=== PATIENT | male | born 1965 | race Caucasian/White ===

== ENCOUNTER → 2020-03-10 12:04 | Outpatient (BNVA) | payer OTHER, SELFPAY | PROVIDERS: Family Provider Internal Medicine; PCP Internal Medicine; Visit Provider Internal Medicine Cardiovascular Disease | DX: E78.5 Hyperlipidemia, unspecified (principal); R06.02 Shortness of breath; I35.0 Nonrheumatic aortic (valve) stenosis; I25.5 Ischemic cardiomyopathy; I65.29 Occlusion and stenosis of unspecified carotid artery; I25.10 Atherosclerotic heart disease of native coronary artery without angina pectoris; I65.23 Occlusion and stenosis of bilateral carotid arteries; I10 Essential (primary) hypertension | CPT/HCPCS: 80048; 80061; 80076 ==

== ENCOUNTER → 2020-03-17 10:31 | Outpatient (BNVA) | payer OTHER, SELFPAY | PROVIDERS: Family Provider Internal Medicine; PCP Internal Medicine; Referring Provider Internal Medicine; Visit Provider Specialist | DX: G40.909 Epilepsy, unspecified, not intractable, without status epilepticus (principal); G40.309 Generalized idiopathic epilepsy and epileptic syndromes, not intractable, without status epilepticus | CPT/HCPCS: 99212; 99213 ==

== ENCOUNTER 2020-04-07 07:46 | Outpatient (CLI) | payer OTHER, SELFPAY ==
--- NOTE | 2020-04-07 | USCV_ITS ---
Angelica Davdi Age: 54 Gender: M : 1965 Exam Date: 04/07/2020 08:13 Ordering Phys: Monica Stevens MD ([email or web address]) Technologist: Delma Patiño Exam Location: [facility] [place] Indication: STENOSIS BP: 140 / 71 HR: 62 Rhythm: Sinus Technical Quality: Adequate MEASUREMENTS (Male / Female) Normal Values 2D ECHO LV Diastolic Diameter PLAX 4.2 cm 4.2 - 5.9 / 3.9 - 5.3 cm LV Systolic Diameter PLAX 2.5 cm LV Chamber Size 3.1 cm IVS Diastolic Thickness 1.5 cm 0.6 - 1.0 / 0.6 - 0.9 cm IVS Systolic Thickness 1.7 cm LVPW Diastolic Thickness 1.8 cm 0.6 - 1.0 / 0.6 - 0.9 cm LVPW Systolic Thickness 2.8 cm RV Chamber Size 2.7 cm LVOT Diameter 2.0 cm LV Ejection Fraction 2D Teich 72.1 % LV Ejection Fraction MOD 2C 55.8 % LV Ejection Fraction 2C AL 56.4 % LA Diameter 4.8 cm LA Width 3.3 cm LA Height 4.3 cm RA Width 3.9 cm RA Height 5.2 cm Aorta at Sinotubular Diameter 2.6 cm M-MODE LV Diastolic Diameter MM 4.7 cm 4.2 - 5.9 / 3.9 - 5.3 cm LV Systolic Diameter MM 3.7 cm LV Ejection Fraction MM Teich 42.9 % IVS Diastolic Thickness MM 1.2 cm 0.6 - 1.0 / 0.6 - 0.9 cm IVS Systolic Thickness MM 1.4 cm LVPW Diastolic Thickness MM 1.5 cm 0.6 - 1.0 / 0.6 - 0.9 cm LVPW Systolic Thickness MM 2.0 cm RV Diastolic Diameter MM 2.7 cm Aortic Annulus Diameter 3.1 cm LA Ao Ratio MM 1.6 MV E Point Septal Separation 1.1 cm DOPPLER AV Peak Velocity 136.0 cm/s LVOT Peak Velocity 101.0 cm/s AV Area Cont Eq vti 2.3 cm squared AV Area Cont Eq pk 2.4 cm squared MV Area PHT 2.9 cm squared Mitral E to A Ratio 1.1 MV E' Velocity 11.0 cm/s Mitral E to MV E' Ratio 10.0 Mitral E to LV E' Lateral Ratio 9.4 Mitral E to LV E' Septal Ratio 10.6 TR Peak Velocity 213.0 cm/s TR Peak Gradient 18.1 mmHg TV Peak E Velocity 70.0 cm/s Right Atrial Pressure 3.0 mmHg Pulmonary Artery Systolic Pressu 21.1 mmHg PV Peak Velocity 89.0 cm/s RV Acceleration Time 0.1 s RV Ejection Time 0.3 s RV AcT/ET 0.3 FINDINGS Left Ventricle Normal left ventricular size and systolic function, EF 48 %. Mild diffuse hypokinesia of the septum and anteroseptal segments.mild left ventricular hypertrophy. Normal left ventricular size and systolic function, EF 48 %. Right Ventricle The right ventricle is normal in size and function. Right Atrium The right atrium is normal in size. Left Atrium The left atrium is normal in size. Mitral Valve No gross abnormalities noted Aortic Valve No gross abnormalities noted Tricuspid Valve No gross abnormalities noted Pulmonic Valve Pulmonic valve not well visualized. Pericardium Normal pericardium without effusion. Aorta Normal ascending aorta dimension. CONCLUSIONS Normal left ventricular size and systolic function, EF 48 %. Mild diffuse hypokinesia of the septum and anteroseptal segments. Mild concentric left renal hypertrophy Normal cardia chamber sizes. No significant pericardial effusion. Technically difficult study because of the poor ultrasonic window. Compared to the study from 08/17/2017, no significant change in the LV ejection fraction. Because of the technical difficulties, exact comparison is difficult Dr Monica Stevens MD [facility] (Electronically Signed) Final Date: 07 April 2020 19:53 S
--- NOTE | 2020-04-07 08:00 | USCV_ITS ---
Angelica David Age: 54 Gender: M : 1965 Exam Date: 04/07/2020 07:59 Ordering Phys: Monica Stevens MD ([email or web address]) Technologist: Delma Patiño Exam Location: [facility] [place] Indication: AV STENOSIS Risk Factors: Previous Vascular Surgery: Right Brachial BP: / Left Brachial BP: / Right Left Velocity (cm/s) Spectral Plaque Velocity (cm/s) Spectral Plaque Syst/Diast Broadening Syst/Diast Broadening 74.10/ 9.90 Prox CCA 124.50/ 17.50 70.90/ 13.20 Mid CCA 62.30 / 9.80 51.90/ 10.70 Distal CCA 63.30 / 9.80 85.20/ 12.80 Prox ICA 76.20 / 18.10 120.00/28.40 Mid ICA 63.80 / 21.60 96.80/ 24.50 Distal ICA 61.80 / 22.60 98.00 ECA 118.60 1.69 ICA/CCA 1.22 Antegrade Vertebral Antegrade 36.20/ 7.10 cm/s 47.30/ 13.40 cm/s Tri Subclavian Tri 63.20 49.30 FINDINGS Moderate heterogeneous plaques at the bifurcations and proximal internal carotid artery. Mild to moderate heterogeneous plaques of the left bifurcation and proximal internal carotid artery Antegrade flow in the vertebral arteries bilaterally Intimal thickening in the common carotid arteries bilaterally Normal Doppler flow velocities in the external carotid and subclavian arteries bilaterally CONCLUSIONS Moderate heterogeneous plaques at the right bifurcation and proximal internal carotid artery with velocity elevation consistent with 16-49% stenosis. Mild to moderate heterogeneous plaques of the left bifurcation and proximal internal carotid artery. Compared to the study from the 08/27/2018, the Doppler velocities are diminished bilaterally Dr Monica Stevens MD [facility] (Electronically Signed) Final Date: 07 April 2020 19:47 S
== END 2020-04-07 07:47 | disposition home or self-care (01) ==
LOC: RAD 07:48
PROVIDERS: PCP Internal Medicine; Visit Provider Internal Medicine Cardiovascular Disease
DX: I35.0 Nonrheumatic aortic (valve) stenosis (principal); N28.81 Hypertrophy of kidney; I65.23 Occlusion and stenosis of bilateral carotid arteries
CPT/HCPCS: 93306; 93880

== ENCOUNTER 2020-05-09 02:15 | Observation (INO) | payer OTHER, SELFPAY ==
[2020-05-09] VITALS (21 sets, daily range): BP systolic 109–181; BP diastolic 62–92; PULSE 48–95; RESP 16–28; TEMP 36.2–39.4; O2SAT 93–99; BMI 30.5
--- NOTE | 2020-05-09 02:33 | CTR_ITS ---
PROCEDURE INFORMATION: Exam: CT Abdomen And Pelvis With Contrast Exam date and time: 05/09/2020 3:36 AM Age: 54 years old Clinical indication: Fever and nausea and vomiting; Abdominal pain; Localized; Right lower quadrant (rlq); Additional info: Rlq pain TECHNIQUE: Imaging protocol: Computed tomography of the abdomen and pelvis with intravenous contrast. Radiation optimization: All CT scans at this facility use at least one of these dose optimization techniques: automated exposure control; mA and/or kV adjustment per patient size (includes targeted exams where dose is matched to clinical indication); or iterative reconstruction. Contrast material: VISI; Contrast volume: 95 ml; Contrast route: INTRAVENOUS (IV); COMPARISON: US Renal Kidney Structu* [id number] 2016-04-28 15:37 RADIATION DOSE METRICS: Total DLP (mGy-cm): 1199.49 FINDINGS: Liver: Normal. No mass. Gallbladder and bile ducts: Irregular gallbladder with gallbladder wall thickening, nodule, and calcification in the fundus, recommend ultrasound follow-up. Pancreas: Normal. No ductal dilation. Spleen: Normal. No splenomegaly. Adrenals: Normal. No mass. Kidneys and ureters: Normal. No hydronephrosis. Stomach and bowel: Unremarkable. No obstruction. No mucosal thickening. Appendix: Enlarged appendix with mucosal enhancement and mild adjacent stranding, appendix measures 11 mm on series 2, image 81. Evidence for acute appendicitis. Intraperitoneal space: Unremarkable. No free air. No significant fluid collection. Vasculature: Unremarkable. No abdominal aortic aneurysm. Lymph nodes: Unremarkable. No enlarged lymph nodes. Bladder: Unremarkable as visualized. Reproductive: Unremarkable as visualized. Bones/joints: Sternotomy. There is a bilateral spondylolysis defect of the L5-S1 level, with no evidence of spondylolisthesis. Soft tissues: Unremarkable. CT/CT abdomen pelvis w con* [id number] IMPRESSION: 1. Irregular gallbladder with gallbladder wall thickening, nodule, and calcification in the fundus, recommend ultrasound follow-up. 2. Enlarged appendix with mucosal enhancement and mild adjacent stranding, appendix measures 11 mm on series 2, image 81. Evidence for acute appendicitis. 3. There is a bilateral spondylolysis defect of the L5-S1 level, with no evidence of spondylolisthesis. Radiation Dose CTDIVOL = (mGy): DLP = 1199.49 (mGy-cm)
[2020-05-09] MEDS: sodium chloride 0.9% 500 ML IV (02:50)
[2020-05-09] MEDS: ondansetron 2 mg/ML SDV 2 mL 4 MG IVP (02:55)
[2020-05-09 03:08] LABS: Basophils % 0.4 %; Eosinophils # 0.1 10^3/uL (0.0-0.8); Eosinophils % 1.4 %; Hematocrit 43.1 % (42.0-52.0); Hemoglobin 13.8 g/dL (11.7-16.6); Mean Corpuscular Hemoglobin 28.3 pg (28.0-34.0); Mean Corpuscular Volume 88.5 fL (80-94); Mean Platelet Volume 9.6 fL (7.4-10.4); Monocytes # 0.4 10^3/uL (0.2-0.9); Monocytes % 4.4 %; Neutrophils % 81.6 %; Nucleated Red Blood Cells % 0 %; Platelet Count 165 10^3/cmm (130-400); Red Blood Count 4.87 10^6/uL (4.1-5.3); White Blood Count 8.1 10^3/uL (4.0-10.0)
[2020-05-09] MEDS: morphine 4 mg/mL SDV 1 mL IVP (03:18)
[2020-05-09 03:28] LABS: Alanine Aminotransferase 14 U/L (0-41); Albumin Level 4.1 g/dL (3.5-5.2); Alkaline Phosphatase 79 IU/L (40-130); Blood Urea Nitrogen 31 mg/dL (6-20); C Reactive Protein 3.2 mg/L (0.0-4.9); Calcium 8.8 mg/dL (8.5-10.5); Carbon Dioxide 21 mmol/L (22-29); Chloride 107 mmol/L (98-107); Globulin 3.8 g/dL (1.3-4.6); Glomerular Filtration Rate 39.2 mL/min (90-130); Glucose 84 mg/dL (65-115); Lipase 252 U/L (13-60); Osmolality Calculated 280 mOsm/kg (285-295); Sodium 137 mmol/L (136-145); Total Bilirubin 0.6 mg/dL (0.15-1.2); Total Protein 7.9 g/dL (6.6-8.7)
[2020-05-09 03:32] LABS: Aspartate Amino Transferase 20 U/L (0-40)
[2020-05-09 03:58] LABS: Add Urine Microscopic? YES; Bilirubin Urine Neg (NEGATIVE); Blood Urine 2+ (Negative); Glucose Urine UA Norm (Normal); Ketones Urine Negative (Negative); Leukocyte Esterase Urine Negative (Negative); Nitrate Urine Negative (Negative); Protein Urine 3+ (Negative); Specific Gravity, Urine 1.015 (1.005-1.030); Urine Appearance Clear (CLEAR); Urine Color Yellow (Yellow); Urobilinogen Urine Norm (Negative); pH Urine 5 (5-7)
[2020-05-09 04:01] LABS: Amorphous Sediment Urine TRACE; Bacteria Urine TRACE; Mucus Urine TRACE; RBC Urine 0-4 /hpf (0-2); Squamous Epithelial Cell Urine 0-4 (0-5); WBC Urine 0-4 /hpf (0-5)
[2020-05-09 04:02] LABS: Add Urine Culture? No; Hyaline Casts Urine 0-4
--- NOTE | 2020-05-09 04:09 | PC.NURSE ---
Dr notified of elevated temp 103.0. orders obtained for toradol IVP
[2020-05-09] MEDS: ketorolac 30 mg/mL INJ IVP (04:10)
[2020-05-09] MEDS: iodixanol 320 mg/mL 100mL Btl IV (04:18)
--- NOTE | 2020-05-09 04:22 | ED_ITS ---
HPI - Abdominal Pain General: Chief Complaint: Abdominal Pain Stated Complaint: SHARP AB PAIN Time Seen by Provider: 05/09/20 02:30 History of Present Illness: HPI narrative: 54-year-old male who developed right lower quadrant abdominal pain around 11 PM last night. He has had the chills. He is nauseated, and is vomited a couple of times. He says the pain is rather intense. No diarrhea. No blood in the stool. No one else with similar symptoms at home. Had no belly surgeries MD elicited complaint: abdominal pain Pertinent past history: myocardial infarction Onset (ago): hour(s) Pain Consistency: constant Location: RLQ Severity: moderate Quality: stabbing and aching Radiation: none Migration to: no migration Exacerbating factors: movement Relieving factors: nothing Associated Symptoms: Reports chills, fever(s) and vomiting; Denies GI cramping, diarrhea, dysuria, hematuria, hematemesis and melena Review of Systems Const: Reports: fever(s) and chills Eyes: Denies: change in vision ENMT: Denies: odynophagia, swelling of lips/tongue, post nasal drip or sinus pain Card: Denies: chest pain, palpitations or irregular heart rhythm Resp: Denies: dyspnea, non-productive cough or wheezing GI: Reports: vomiting; Denies: hematemesis, diarrhea, GI cramping or melena : Reports: urinary frequency; Denies: difficulty urinating, dysuria or hematuria Musc: Denies: neck pain or back pain Skin/Breast: Reports: rash; Denies: erythema Neuro: Denies: headache(s), dizziness or vertigo Psych: Denies: anxiety [facility] PFSH: Medical History (Updated 05/09/20 @ 05:14 by Bautista Perera DO) Atherosclerosis of coronary artery of [place] heart Benign essential hypertension with target blood pressure below 140/90 Carotid artery stenosis without cerebral infarction Dyslipidemia (high LDL; low HDL) Ischemic cardiomyopathy Family History Other Diabetes Hypertension Denies family history of CAD (coronary artery disease) Cancer Stroke Social History Smoking and tobacco status: never smoked Alcohol intake: never History of recent travel: Yes (traveled to [facility]) Physical Exam Const: GENERAL APPEARANCE: well developed ORIENTATION/CONSCIOUSNESS: Yes oriented to person, Yes oriented to place and Yes oriented to time HENMT: COMMON NORMALS: normocephalic, external ears normal and Normal external nose present HEAD & SCALP: normocephalic FACE & SINUS: normal facial exam NOSE: Normal external nose present and No nasal discharge present EXTERNAL EAR: Yes external ears normal Eye: COMMON NORMALS: Equal, round and reactive pupils present, EOMs intact bilaterally and conjunctivae normal EYELID: eyelids normal CONJUNCTIVA: Yes conjunctivae normal PUPIL: Yes Equal, round and reactive pupils present Neck/C-Spine: GENERAL: No tracheal deviation Chest: COMMONS NORMALS: normal inspection of the chest CHEST: No tenderness Resp: COMMON NORMALS: clear to auscultation bilaterally EFFORT & INSPECTION: No tachypneic, No respiratory distress, No retractions, No uses accessory muscles and No tracheal deviation AUSCULTATION: clear to auscultation bilaterally, no rhonchi, no wheezes and lung sounds not diminished Cardio: COMMON NORMALS: regular rate and regular rhythm RATE: regular rate RHYTHM: regular rhythm HEART SOUNDS: no murmurs PERIPHERAL PULSES: radial pulses present GI: INSPECTION: No abdominal distension AUSCULTATION: No Hyperactive bowel sounds present and No Hypoactive bowel sounds present PALPATION: Yes Tenderness to palpation present (GI) Details: RLQ, No Guarding due to palpation present (GI) and No Rigid due to palpation PERCUSSION: no tympanic to percussion Neuro: SENSORIUM/ORIENTATION: Yes oriented to person, Yes oriented to place and Yes oriented to time Psych: COMMON NORMALS: mental status grossly normal Skin: COMMON NORMALS: no rashes or lesions noted GENERAL SKIN EXAM: no rashes or lesions noted Course Consultations: Consultation #1: aron Time: 05:05 Vital Signs: Vital signs: Vital Signs Temperature 102.4 F H 05/09/20 04:43 Pulse Rate 82 05/09/20 04:43 Respiratory Rate 18 05/09/20 04:43 Blood Pressure 167/73 05/09/20 04:43 Pulse Oximetry 95 05/09/20 04:43 MDM - Abdominal Pain MDM Narrative: Medical decision making narrative: 54-year-old male with right lower quadrant pain. His white blood cell count is 8.1. His CRP is not yet elevated. His bicarbonate level is 21, and creatinine 1.8. He does have diabetes. He has a history of heart disease as well. He is not having any symptoms related to those things. His CT reveals an 11 mm inflamed appendix. Spoke with surgery. The patient is on a full aspirin, but no other anticoagulants or antiplatelet therapy otherwise. He will be given Zosyn, and seen a bit later this morning. Lab Data: Labs: Lab Results 05/09/20 05/09/20 05/09/20 Range/Units 02:51 02:51 03:30 WBC 8.1 (4.0-10.0) 10^3/ uL RBC 4.87 (4.1-5.3) 10^6/u L Hgb 13.8 (11.7-16.6) g/dL Hct 43.1 (42.0-52.0) % MCV 88.5 (80-94) fL MCH 28.3 (28.0-34.0) pg MCHC 32.0 (30.0-36.0) g/dL RDW 12.0 L (12.1-15.1) % Plt Count 165 (130-400) 10^3/c mm MPV 9.6 (7.4-10.4) fL Neut % (Auto) 81.6 % Lymph % (Auto) 12.0 % [place] % (Auto) 4.4 % Eos % (Auto) 1.4 % Baso % (Auto) 0.4 % Neut # (Auto) 6.60 (1.8-7.7) 10^3/u L Lymph # (Auto) 1.0 (0.8-4.8) 10^3/u L [place] # (Auto) 0.4 (0.2-0.9) 10^3/u L Eos # (Auto) 0.1 (0.0-0.8) 10^3/u L Baso # (Auto) 0.0 (0.0-0.1) 10^3/u L Nucleated RBC % (a uto) 0 % Nucleated RBCs # 0.0 /100WBC Sodium 137 (136-145) mmol/L Potassium 5.0 (3.5-5.1) mmol/L Chloride 107 (98-107) mmol/L Carbon Dioxide 21 L (22-29) mmol/L Anion Gap 14.0 (5-19) BUN 31 H (6-20) mg/dL Creatinine 1.8 H (0.7-1.2) mg/dL GFR Calculation 39.2 L (90-130) mL/min Glucose 84 (65-115) mg/dL Calculated Osmolal ity 280 L (285-295) mOsm/k g Calcium 8.8 (8.5-10.5) mg/dL Total Bilirubin 0.6 (0.15-1.2) mg/dL AST 20 (0-40) U/L ALT 14 (0-41) U/L Alkaline Phosphata se 79 (40-130) IU/L C-Reactive Protein 3.2 (0.0-4.9) mg/L Total Protein 7.9 (6.6-8.7) g/dL Albumin 4.1 (3.5-5.2) g/dL Globulin 3.8 (1.3-4.6) g/dL Lipase 252 H (13-60) U/L Urine Color Yellow (Yellow) Urine Appearance Clear (CLEAR) Urine pH 5 (5-7) Ur Specific Gravit y 1.015 (1.005-1.030) Urine Protein 3+ H (Negative) Urine Glucose (UA) Norm (Normal) Urine Ketones Negative (Negative) Urine Blood 2+ H (Negative) Urine Nitrate Negative (Negative) Urine Bilirubin Neg (NEGATIVE) Urine Urobilinogen Norm (Negative) mg/dL Ur Leukocyte Leelee ase Negative (Negative) Urine RBC 0-4 H (0-2) /hpf Urine WBC 0-4 H (0-5) /hpf Ur Squamous Epith Cells 0-4 H (0-5) Amorphous Sediment Trace Urine Bacteria Trace (NONE) Hyaline Casts 0-4 H Urine Mucus Trace Discharge Plan Discharge Patient Disposition: Placed in Observation Clinical Impression: Acute appendicitis Qualifiers: Acute appendicitis type: with localized peritonitis Appendicitis gangrene presence: without gangrene Appendicitis perforation presence: without perforation Appendicitis abscess presence: without abscess Qualified Code(s): K35.30 - Acute appendicitis with localized peritonitis, without perforation or gangrene Condition: Stable Referrals: Trent Bernstein DO [Primary Care Provider] - Patient Instructions: Appendicitis (GEN) Coding Level of Care Code ED Larry Operator for [facility] Fwd Exam Comprehensive
--- NOTE | 2020-05-09 04:56 | PC.NURSE ---
pt actively vomiting during initial assessment. Approx 300cc of undigested food in emesis basin
[2020-05-09] MEDS: piperacillin-tazobactam 3.375 GM in sodium chloride 0.9% (plus) 50 ML IV (05:12)
--- NOTE | 2020-05-09 05:54 | PC.NURSE ---
i agree with this assessment
--- NOTE | 2020-05-09 07:36 | ECG_ITS ---
[facility] Test Date: 2020-05-09 Pat Name: Angelica David Department: Room: 273 Gender: Male [employer]ter: : 1965 Requested By: Padmini West Order Number: [id number] Armijo MD: Danii Purcell M.D. Measurements Intervals [place] Rate: 69 P: 47 MT: 192 QRS: 40 QRSD: 100 T: 139 QT: 395 QTc: 425 Interpretive Statements SINUS RHYTHM INFERIOR MYOCARDIAL INFARCTION, OF INDETERMINATE AGE ST DEVIATION AND MARKED T-WAVE ABNORMALITY, CONSIDER LATERAL ISCHEMIA Compared to ECG 05/24/2016 05:38:39 T-wave abnormality now present Possible ischemia now present Intraventricular conduction delay no longer present Myocardial infarct finding still present Electronically Signed On 05-09-2020 12:48:09 CDT by Danii Purcell M.D. [id number]
--- NOTE | 2020-05-09 07:37 | P.HP_ITS ---
Providers/Chief Complaint Admitting Physician: Lew Jaquez MD Primary Care Provider: Trent Bernstein DO Chief Complaint: SHARP AB PAIN History of Present Illness Angelica David is a 54 year old male who presented to the ER early this morning with complaints of right lower quadrant pain which started at 11 PM last night. Patient stated the pain is localized to the right lower quadrant, did not radiate, no relieving factors, made worse with motion. Patient also had multiple episodes of nausea and vomiting. Denies any fevers or chills. No significant constipation or diarrhea. Patient has never had a colonoscopy prep before, no prior abdominal surgeries Review of Systems General: Reports: 10 or more systems reviewed and unremarkable except in HPI and below Medications/Allergies Home Medications Medication Instructions Recorded Confirmed Last Taken Type carvedilol 25 mg tablet 25 mg PO BID #180 tab 02/03/20 05/09/20 Unknown Rx isosorbide mononitrate 30 mg 30 mg PO DAILY #90 tab 02/17/20 05/09/20 Unknown Rx tablet,extended release 24 hr amlodipine 10 mg tablet 10 mg PO DAILY 03/10/20 05/09/20 Unknown History aspirin 325 mg tablet 325 mg PO DAILY 03/10/20 05/09/20 Unknown History insulin degludec 100 unit/mL 45 unit SUBCUT BEDTIME 03/10/20 05/09/20 Unknown History subcutaneous solution insulin lispro 100 unit/mL 1 unit SUBCUT DIRECTED 03/10/20 05/09/20 Unknown History subcutaneous pen divalproex 500 mg tablet,extended 1,500 mg PO DAILY #300 tab 03/17/20 05/09/20 Unknown Rx release 24 hr rosuvastatin 10 mg tablet 10 mg PO DAILY #90 tab 03/18/20 05/09/20 Unknown Rx Zonegran 400 mg PO DAILY 05/09/20 05/09/20 Unknown History Allergies Allergy/AdvReac Type Severity Reaction Status Date / Time No Known Allergies Allergy Unverified 03/17/20 10:43 PFSH Acute PFSH: Medical History Atherosclerosis of coronary artery of [place] heart Benign essential hypertension with target blood pressure below 140/90 Carotid artery stenosis without cerebral infarction Dyslipidemia (high LDL; low HDL) Ischemic cardiomyopathy Family History Other Diabetes Hypertension Denies family history of CAD (coronary artery disease) Cancer Stroke Social History Smoking and tobacco status: never smoked Alcohol intake: never History of recent travel: Yes (traveled to [facility]) Vitals/I&O/Wt Last Vital Signs Temp 98.3 F 05/09/20 07:24 Pulse 75 05/09/20 07:24 Resp 16 05/09/20 07:24 BP 117/65 05/09/20 07:24 Pulse Ox 95 05/09/20 07:24 Weight last 48 hrs Weight 225 lb Physical Exam Narrative: EXAM NARRATIVE: HEENT: Normocephalic Eye: Sclera /conjunctiva normal Respiratory and chest: Bilateral clear breath sounds on auscultation Cardiovascular: Normal S1 and S2 heart sounds Abdomen: Soft to palpation, tender right lower quadrant, Rovsing sign positive Neurological: Oriented to place person and time Skin: Intact, no lesions appreciated on gross exam Data : 05/09/20 02:51 05/09/20 02:51 A&P Assessment and plan (1) Acute appendicitis: 54-year-old gentleman with right lower quadrant pain, nausea and vomiting, with CT scan showing acute appendicitis Plan for laparoscopic possible open appendectomy Procedure, risks, benefits and alternatives have been discussed with the patient who wishes to proceed with surgery. Status: Acute Qualifiers: Acute appendicitis type: with localized peritonitis Appendicitis abscess presence: without abscess Appendicitis gangrene presence: without gangrene Appendicitis perforation presence: without perforation Qualified Code(s): K35.30 - Acute appendicitis with localized peritonitis, without perforation or gangrene Attestations Medical Necessity Statement*: Acute appendicitis Coding Level of Care Code Acute Manager Of Regulatory Affairs for [facility] Fwd Diagnoses Acute appendicitis K35.30 Acute appendicitis type: with localized peritonitis Appendicitis abscess presence: without abscess Appendicitis gangrene presence: without gangrene Appendicitis perforation presence: without perforation
[2020-05-09] MEDS: sodium chloride 0.9% 1,000 ML 100 ML IV (07:45)
--- NOTE | 2020-05-09 08:09 | P.ANESASSM_ITS ---
Pre-Anesthetic Assessment Pre-Anesthetic Assessment: Height/Weight: Height 1.83 m Weight 102.058 kg Temp Pulse Resp BP Pulse Ox 98.3 F 75 16 117/65 95 05/09/20 07:24 05/09/20 07:24 05/09/20 07:24 05/09/20 07:24 05/09/20 07:24 Preop Diagnosis: Acute appendicitis Proposed Procedure: Operation Date: 05/09/20 09:10 Proposed Procedures p Laparoscopic Appendectomy(Not Applicable) - Lew Jaquez MD Familial anesthetic complications: No trouble Was Beta Katja taken within 24 hours: Yes Last intake: Intake Last Liquid Date 05/08/20 Last Liquid Time 21:30 Last Solid Date 05/08/20 Last Solid Time 17:30 Social: Social History: No alcohol and No tobacco Exam: Pre-Anes Outpt Exam: alert, oriented x 3, clear to auscultation bilaterally and regular rate & rhythm Airway: Cervical ROM: WNL MP: 3 Dentition: Full Pulmonary: Pulmonary: None reported CV/HEM: CV/HEM: CAD (s/p cabg 2015), HTN and HI Comments: Echo 48% EF : : Chronic renal Insufficiency Comments: Scr 1.9, CKD III Metabolic: Metabolic: DM and Hyperlipidemia Neuropsych: Neuropsych: Seizure (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) Comments: Mod carotid stenosis B/L Anesthetic Plan: ASA status: 3 Anesthesia: General Risk of > 500 ml blood loss (7ml/kg in children): No Meds/Allergies Current Medications: Current Medications Generic Name Dose Route Start Last Admin Trade Name Freq PRN Reason Stop Dose Admin Sodium Chloride 1,000 mls @ 100 m ls/hr 05/09/20 07:45 05/09/20 07:45 Sodium Chloride 0.9% IV 100 mls/hr .Q10H JAYLEN Administration PFSH Anesthesia PFSH: Medical History Atherosclerosis of coronary artery of [place] heart Benign essential hypertension with target blood pressure below 140/90 Carotid artery stenosis without cerebral infarction Dyslipidemia (high LDL; low HDL) Ischemic cardiomyopathy Family History Other Diabetes Hypertension Denies family history of CAD (coronary artery disease) Cancer Stroke Social History Smoking and tobacco status: never smoked Alcohol intake: never History of recent travel: Yes (traveled to [facility]) Data Anesthesia CBC & Chem 7: 05/09/20 02:51 05/09/20 02:51 Other Labs: Laboratory Results - last 48 hr 05/09/20 05/09/20 05/09/20 02:51 02:51 03:30 WBC 8.1 RBC 4.87 Hgb 13.8 Hct 43.1 MCV 88.5 MCH 28.3 MCHC 32.0 RDW 12.0 L Plt Count 165 MPV 9.6 Neut % (Auto) 81.6 Lymph % (Auto) 12.0 [place] % (Auto) 4.4 Eos % (Auto) 1.4 Baso % (Auto) 0.4 Neut # (Auto) 6.60 Lymph # (Auto) 1.0 [place] # (Auto) 0.4 Eos # (Auto) 0.1 Baso # (Auto) 0.0 Nucleated RBC % (auto) 0 Nucleated RBCs # 0.0 Sodium 137 Potassium 5.0 Chloride 107 Carbon Dioxide 21 L Anion Gap 14.0 BUN 31 H Creatinine 1.8 H GFR Calculation 39.2 L Glucose 84 Calculated Osmolality 280 L Calcium 8.8 Total Bilirubin 0.6 AST 20 ALT 14 Alkaline Phosphatase 79 C-Reactive Protein 3.2 Total Protein 7.9 Albumin 4.1 Globulin 3.8 Lipase 252 H Urine Color Yellow Urine Appearance Clear Urine pH 5 Ur Specific [place] 1.015 Urine Protein 3+ H Urine Glucose (UA) Norm Urine Ketones Negative Urine Blood 2+ H Urine Nitrate Negative Urine Bilirubin Neg Urine Urobilinogen Norm Ur Leukocyte Esterase Negative Urine RBC 0-4 H Urine WBC 0-4 H Ur Squamous Epith Cells 0-4 H Amorphous Sediment Trace Urine Bacteria Trace Hyaline Casts 0-4 H Urine Mucus Trace Cardiac Studies: No Data to Display
--- NOTE | 2020-05-09 10:16 | PM.OP ---
Operative Report Date of procedure: May 09, 2020 Pre-op Diagnosis: Acute appendicitis Post-op diagnosis: same Procedure Done: Laparoscopic appendectomy Specimens removed/disposition: Appendix Surgeon: Lew Jaquez Anesthesia: General Estimated blood loss (mL): 20 Condition: stable Disposition: PACU Procedure: The patient was taken to the Operating Room and intubated under general anesthesia after antibiotic had been administered. Using a 15 blade, a 1-cm infraumbilical incision was made and using open Braxton technique, the peritoneal cavity was entered. A 12mm port with balloon was placed and 14 mm of pneumoperitoneum was created and 10-mm 30 degree scope was introduced. Two separate 5mm ports were placed in the left and right lower quadrant under direct visualization. The appendix was noted in the right lower quadrant and appeared acutely inflamed.. Using [place] forceps, an opening was made in the mesoappendix near the base of the appendix. An Endo RADHA stapler 45mm long 3.5mm blue load was introduced to divide the appendix at it's base. Using electrocautery, the mesoappendix including the appendicular artery was divided. There was no bleeding noted and the staple line appeared intact. The right lower quadrant was irrigated with saline and an EndoCatch bag was introduced to remove the appendix. All three ports were removed under direct visualization and there was no bleeding noted on the port sites. 10cc of 0.5% Marcaine was infiltrated at the port sites. The fascia at the umbilical port was closed using figure of eight 0-Vicryl sutures and subcutaneous tissue was approximated using 3-0 Vicryl and skin at all 3 port sites was closed using 4-0 Monocryl and Dermabond.
--- NOTE | 2020-05-09 10:17 | P.DS_ITS ---
Discharge Providers Date of Admission: 05/09/20 05:16 Date of Discharge: May 09, 2020 Attending Provider at Admission: Lew Jaquez MD Attending Provider at Discharge: Lew Jaquez MD Primary Care Provider: Trent Bernstein DO Diagnoses at Discharge Discharge Diagnosis (1) Acute appendicitis: Status: Resolved Qualifiers: Acute appendicitis type: with localized peritonitis Appendicitis abscess presence: without abscess Appendicitis gangrene presence: without gangrene Appendicitis perforation presence: without perforation Qualified Code(s): K35.30 - Acute appendicitis with localized peritonitis, without perforation or gangrene Reason for Visit Reason for Visit: SHARP AB PAIN Hospital Course Discharge Summary: This is a 54-year-old gentleman who presented to the ER with right lower quadrant pain and CT showed appendicitis. Patient was admitted to the hospital and underwent laparoscopic appendectomy the following morning. At the time of discharge patient was tolerating a clear liquid diet vital signs are stable and his pain was well controlled. Discharge Data Data Completed and Pending: Completed Studies During Hospitalization Category Date Time Status CT abdomen pelvis w con* [id number] Urge nt Cat Scan 05/09/20 02:33 Completed Pending at discharge Category Date Time Status ES surgery / GI i mages Routine Exams 05/09/20 08:55 Taken Pathology: Surgic al [PTH] Routine Pth 05/09/20 10:01 Ordered Labs from last 24 hours 05/09/20 05/09/20 05/09/20 03:30 02:51 02:51 WBC 8.1 RBC 4.87 Hgb 13.8 Hct 43.1 MCV 88.5 MCH 28.3 MCHC 32.0 RDW 12.0 L Plt Count 165 MPV 9.6 Neut % (Auto) 81.6 Lymph % (Auto) 12.0 [place] % (Auto) 4.4 Eos % (Auto) 1.4 Baso % (Auto) 0.4 Neut # (Auto) 6.60 Lymph # (Auto) 1.0 [place] # (Auto) 0.4 Eos # (Auto) 0.1 Baso # (Auto) 0.0 Nucleated RBC % (a uto) 0 Nucleated RBCs # 0.0 Sodium 137 Potassium 5.0 Chloride 107 Carbon Dioxide 21 L Anion Gap 14.0 BUN 31 H Creatinine 1.8 H GFR Calculation 39.2 L Glucose 84 Calculated Osmolal ity 280 L Calcium 8.8 Total Bilirubin 0.6 AST 20 ALT 14 Alkaline Phosphata se 79 C-Reactive Protein 3.2 Total Protein 7.9 Albumin 4.1 Globulin 3.8 Lipase 252 H Urine Color Yellow Urine Appearance Clear Urine pH 5 Ur Specific Gravit y 1.015 Urine Protein 3+ H Urine Glucose (UA) Norm Urine Ketones Negative Urine Blood 2+ H Urine Nitrate Negative Urine Bilirubin Neg Urine Urobilinogen Norm Ur Leukocyte Leelee ase Negative Urine RBC 0-4 H Urine WBC 0-4 H Ur Squamous Epith Cells 0-4 H Amorphous Sediment Trace Urine Bacteria Trace Hyaline Casts 0-4 H Urine Mucus Trace Vitals: Last Vital Signs Temp 98.4 F 05/09/20 08:32 Pulse 68 05/09/20 08:32 Resp 18 05/09/20 08:32 BP 135/71 05/09/20 08:32 Pulse Ox 96 05/09/20 08:32 Discharge Plan Discharge Patient Disposition: Home Condition: Stable Prescriptions: [place] 5-325 mg tablet 1 tab PO Q6H 7 Days Qty: 20 RF: 0 docusate sodium [Colace] 100 mg capsule 100 mg PO BID Qty: 30 RF: 0 ondansetron HCl [Zofran] 4 mg tablet 4 mg PO Q6H PRN (Reason: nausea and vomiting) Qty: 20 RF: 0 Continued divalproex [Depakote ER] 500 mg tablet extended release 24 hr 1,500 mg PO DAILY Qty: 300 RF: 3 amlodipine 10 mg tablet 10 mg PO DAILY RF: 0 Tresiba U-100 Insulin 100 unit/mL solution 45 unit SUBCUT BEDTIME RF: 0 insulin lispro [Humalog KwikPen Insulin] 100 unit/mL insulin pen 1 unit SUBCUT DIRECTED RF: 0 carvedilol 25 mg tablet 25 mg PO BID Qty: 180 RF: 3 isosorbide mononitrate 30 mg tablet extended release 24 hr 30 mg PO DAILY Qty: 90 RF: 3 rosuvastatin [Crestor] 10 mg tablet 10 mg PO DAILY Qty: 90 RF: 3 Zonegran 100 mg capsule 400 mg PO DAILY RF: 0 Held aspirin 325 mg tablet 325 mg PO DAILY RF: 0 Hold Instructions: Resume on 05/12/20. Discharge Orders: Discharge Order (Routine); Ordered 05/09/20 Ordered By: Lew Jaquez Referrals: Trent Bernstein DO [Primary Care Provider] - Lew Jaquez MD [Physician] - 2 weeks Discharge Diet: Advance as tolerated Patient Instructions: Appendicitis (GEN) Activity Restrictions/Additional Instructions: 1. Up and walking as tolerated. 2. Ok to shower in 48 hours after surgery. 3. Remove Dermabond dressing in 7-10 days. 4. Do not lift more than 10 pounds. 5. Do not operate heavy machinery or drive while using pain medications. 6. Advised to return to ER or contact my office if there are any signs of infection like, increasing pain, fevers, chills, redness or drainage of pus. 7. 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
--- NOTE | 2020-05-09 10:22 | SUR.PHASEI ---
PT TO PACU SLEEPY WITH GOOD RESP EFFORT, ABD SOFT WITH 3 SITES D/I
--- NOTE | 2020-05-09 10:52 | PC.NURSE ---
BACK FROM OR PATIENT ARRIVED BACK TO FLOOR FROM OR. STABS TO ABDOMEN EXTRUDER OPERATOR MULTIPLE. ASYMPTOMATIC. PATIENT'S PAIN CONTROLLED. TOLERATING CLEAR LIQUIDS AT THIS TIME.
--- NOTE | 2020-05-09 10:56 | SUR.PHASEI ---
1045 PT TO FLOOR HANDOFF AT BEDSIDE TO FLOOR NURSE ERENDIRA STERN PT UP AND WALKED TO BED WITH MINIMAL ASSIST, VSS.
== END 2020-05-09 13:03 | disposition home or self-care (01) ==
LOC: ER 05:14 → MEDSURG 07:18
PROVIDERS: Admitting Provider Surgery; Emergency Provider Emergency Medicine; PCP Internal Medicine; Visit Provider Surgery
PROC: 0DTJ4ZZ Resection of Appendix, Percutaneous Endoscopic Approach (ICD-10-PCS; CPT 44970; principal; 2020-05-09 09:10)
DX: K35.30 Acute appendicitis with localized peritonitis, without perforation or gangrene (principal); I25.10 Atherosclerotic heart disease of native coronary artery without angina pectoris; Z95.1 Presence of aortocoronary bypass graft; I10 Essential (primary) hypertension; I25.2 Old myocardial infarction; E11.9 Type 2 diabetes mellitus without complications; E78.5 Hyperlipidemia, unspecified; Z82.49 Family history of ischemic heart disease and other diseases of the circulatory system; Z83.3 Family history of diabetes mellitus
CPT/HCPCS: 44970; 12345; 74177; 80053; 81001; 83690; 85025; 86140; 88304; 93005; 96361; 96365; 96367; 96368; 96375; 96376; 99283; 99285; G0378; J1885; J2270; J2405; J2543; J2704; J2710; J3010; J3490; J7030; J7040; Q9967

== ENCOUNTER → 2020-06-12 08:56 | Outpatient (BNVA) | payer OTHER, SELFPAY | PROVIDERS: PCP Internal Medicine; Visit Provider Internal Medicine | DX: Z11.59 Encounter for screening for other viral diseases (principal) | CPT/HCPCS: 87635 ==

== ENCOUNTER 2020-06-16 07:33 | Day surgery (SDC) | payer OTHER, SELFPAY ==
[2020-06-12 12:23] VITALS: BMI 30.5
--- NOTE | 2020-06-16 08:06 | P.ANESASSM_ITS ---
Pre-Anesthetic Assessment Pre-Anesthetic Assessment: Height/Weight: Height 1.83 m Weight 102.058 kg Preop Diagnosis: screening Proposed Procedure: Operation Date: 06/16/20 08:30 Proposed Procedures p Colonoscopy 21767 Z12.11(Not Applicable) - Lew Jaquez MD Familial anesthetic complications: None Was Beta Katja taken within 24 hours: Yes Last intake: NPO > 8 hrs Social: Social History: No alcohol and No tobacco Exam: Pre-Anes Outpt Exam: alert, oriented x 3, clear to auscultation bilaterally and regular rate & rhythm Airway: Cervical ROM: WNL MP: 2 Dentition: Full CV/HEM: CV/HEM: CAD, HTN and LA Comments: CABG in 2016 Echo 04/07/20 - Ef 48% : : Chronic renal Insufficiency Metabolic: Metabolic: DM and Hyperlipidemia Neuropsych: Neuropsych: Seizure (as a child) Comments: carotid stenosis Anesthetic Plan: ASA status: 3 Anesthesia: MAC Risk of > 500 ml blood loss (7ml/kg in children): No PFSH Anesthesia PFSH: Medical History Atherosclerosis of coronary artery of [place] heart Benign essential hypertension with target blood pressure below 140/90 Carotid artery stenosis without cerebral infarction Dyslipidemia (high LDL; low HDL) Ischemic cardiomyopathy Surgical History S/P laparoscopic appendectomy (05/09/20) Family History Other Diabetes Hypertension Denies family history of CAD (coronary artery disease) Cancer Stroke Social History Smoking and tobacco status: never smoked Alcohol intake: never History of recent travel: Yes (traveled to [facility]) Data Anesthesia Cardiac Studies: No Data to Display
[2020-06-16 08:09] VITALS: BP 107/65; PULSE 66; RESP 18; TEMP 36.1; O2SAT 98
[2020-06-16] MEDS: sodium chloride 0.9% 1,000 ML 30 ML IV (08:09)
[2020-06-16 08:15] LABS: Glucose Point of Care 97 mg/dL (70-110)
--- NOTE | 2020-06-16 08:27 | W.PM.OPSUD ---
Surgery/Procedure H&P Update DATE OF PROCEDURE: June 16, 2020 DATE H&P PERFORMED: 05/26/20 H&P UPDATE INFORMATION: I have reviewed H&P completed within last 30 days, I have examined patient prior to procedure and No changes to prior documentation PREOP DIAGNOSIS: screening PLANNED PROCEDURE: Operation Date: 06/16/20 08:30 Proposed Procedures p Colonoscopy 76671 Z12.11(Not Applicable) - Lew Jaquez MD
[2020-06-16 09:10] VITALS: BP 96/61; PULSE 57; RESP 16; TEMP 36.1; O2SAT 96
--- NOTE | 2020-06-16 09:14 | ANE.PACU2 ---
Inpatient post-anesthesia follow up: Airway intact: Yes Vital signs: Temperature 97 F Pulse Rate 57 Respiratory Rate 16 Blood Pressure 96/61 Pulse Oximetry 96 Oxygen Delivery Me thod Nasal Cannula Oxygen Flow Rate 3 Fraction of Inspir ed Oxygen Hydration adequate: Yes Nausea and vomiting: No Pain level: 1 Mental status: Baseline
[2020-06-16 09:25] VITALS: BP 106/65; PULSE 57; RESP 18; O2SAT 95
== END 2020-06-16 09:35 | disposition home or self-care (01) ==
PROVIDERS: PCP Internal Medicine; Visit Provider Surgery
PROC: 0DJD8ZZ Inspection of Lower Intestinal Tract, Via Natural or Artificial Opening Endoscopic (ICD-10-PCS; CPT 45378; principal; 2020-06-16 08:30)
DX: Z12.11 Encounter for screening for malignant neoplasm of colon (principal); D12.2 Benign neoplasm of ascending colon; I25.10 Atherosclerotic heart disease of native coronary artery without angina pectoris; I25.2 Old myocardial infarction; I10 Essential (primary) hypertension; I12.9 Hypertensive chronic kidney disease with stage 1 through stage 4 chronic kidney disease, or unspecified chronic kidney disease; N18.9 Chronic kidney disease, unspecified; E11.22 Type 2 diabetes mellitus with diabetic chronic kidney disease; E78.5 Hyperlipidemia, unspecified; Z95.1 Presence of aortocoronary bypass graft
CPT/HCPCS: 12345; 36416; 45380; 82962; 88305; J2704; J7030

== ENCOUNTER → 2021-03-15 10:16 | Outpatient (BNVA) | payer OTHER, SELFPAY | PROVIDERS: PCP Internal Medicine; Visit Provider Specialist | DX: G40.309 Generalized idiopathic epilepsy and epileptic syndromes, not intractable, without status epilepticus (principal); G40.909 Epilepsy, unspecified, not intractable, without status epilepticus; I65.23 Occlusion and stenosis of bilateral carotid arteries | CPT/HCPCS: 99213 ==

== ENCOUNTER → 2022-02-02 12:34 | Outpatient (BNVA) | payer OTHER, SELFPAY | PROVIDERS: PCP Internal Medicine; Visit Provider Internal Medicine Cardiovascular Disease | DX: R06.02 Shortness of breath (principal); I65.23 Occlusion and stenosis of bilateral carotid arteries; I50.33 Acute on chronic diastolic (congestive) heart failure | CPT/HCPCS: 80048; 83036; 83880 ==

== ENCOUNTER 2022-04-29 13:09 | Outpatient (CLI) | payer OTHER, SELFPAY ==
--- NOTE | 2022-04-29 13:00 | USCV_ITS ---
Angelica David Age: 56 Gender: M : 1965 Exam Date: 04/29/2022 13:38 Ordering Phys: Monica Stevens MD ([email or web address]) Technologist: Natacha Ordoñez Exam Location: [facility] [place] Indication: CAD BP: 128 / 80 HR: 64 Rhythm: Sinus Technical Quality: Adequate MEASUREMENTS (Male / Female) Normal Values 2D ECHO LV Diastolic Diameter PLAX 4.3 cm 4.2 - 5.9 / 3.9 - 5.3 cm LV Systolic Diameter PLAX 2.9 cm IVS Diastolic Thickness 1.5 cm 0.6 - 1.0 / 0.6 - 0.9 cm IVS Systolic Thickness 2.0 cm LVPW Diastolic Thickness 1.2 cm 0.6 - 1.0 / 0.6 - 0.9 cm LVPW Systolic Thickness 1.7 cm LVOT Diameter 2.1 cm LV Ejection Fraction 2D Teich 62.8 % LV Ejection Fraction MOD 2C 58.9 % LV Ejection Fraction 2C AL 60.1 % LA Diameter 3.9 cm LA Width 3.3 cm LA Height 5.2 cm RA Width 3.9 cm RA Height 4.6 cm Aorta at Sinotubular Diameter 2.8 cm DOPPLER AV Peak Velocity 118.0 cm/s LVOT Peak Velocity 109.0 cm/s AV Area Cont Eq vti 3.3 cm squared AV Area Cont Eq pk 3.3 cm squared MV Peak Velocity 108.0 cm/s MV Area PHT 2.8 cm squared Mitral E to A Ratio 1.1 MV E' Velocity 111.0 cm/s TR Peak Velocity 55.3 cm/s TR Peak Gradient 1.2 mmHg Right Atrial Pressure 3.0 mmHg Pulmonary Artery Systolic Pressu 4.2 mmHg PV Peak Velocity 109.0 cm/s RV Acceleration Time 0.1 s FINDINGS Left Ventricle Normal left ventricular size and systolic function, EF 60 %. No regional wall motion abnormalities. Right Ventricle The right ventricle is normal in size and function. Right Atrium The right atrium is normal in size. Left Atrium The left atrium is normal in size. Mitral Valve No gross abnormalities noted Aortic Valve No gross abnormalities noted Tricuspid Valve No gross abnormalities noted Pulmonic Valve Pulmonic valve not well visualized. Pericardium Normal pericardium without effusion. Aorta Normal ascending aorta dimension. IVC Normal inferior vena cava. CONCLUSIONS Normal left ventricular size and systolic function, EF 60 %. No regional wall motion abnormalities. Normal cardiac chamber sizes. No gross valvular abnormalities There is no pericardial effusion. There are no intracardiac masses. Technically difficult study because of the poor ultrasonic window. Dr Monica Stevens MD [facility] (Electronically Signed) Final Date: 29 April 2022 17:21 S
--- NOTE | 2022-04-29 14:00 | USCV_ITS ---
Angelica David Age: 56 Gender: M : 1965 Exam Date: 04/29/2022 14:10 Ordering Phys: Monica Stevens MD ([email or web address]) Technologist: Natacha Ordoñez Exam Location: [facility] [place] Indication: carotid stenosis Risk Factors: Previous Vascular Surgery: Right Brachial BP: / Left Brachial BP: / Right Left Velocity (cm/s) Spectral Plaque Velocity (cm/s) Spectral Plaque Syst/Diast Broadening Syst/Diast Broadening 69.10/ 10.90 Prox CCA 125.50/ 14.50 81.60/ 14.00 Mid CCA 86.00 / 12.10 66.80/ 10.90 Distal CCA 84.90 / 12.10 151.90/33.00 Prox ICA 194.20/ 32.60 127.20/29.70 Mid ICA 177.10/ 35.70 117.30/24.80 Distal ICA 111.90/ 24.90 176.70 ECA 149.10 1.86 ICA/CCA 1.55 Antegrade Vertebral Antegrade 67.50/ 11.80 cm/s 40.20/ 9.40 cm/s Subclavian 91.70 128.8 0 FINDINGS Moderate heterogeneous plaques at the bifurcations and proximal internal carotid arteries bilaterally Antegrade flow in the vertebral arteries bilaterally Normal/near normal Doppler flow velocities in the external carotid arteries bilaterally. Intimal thickening in the common carotid arteries bilaterally CONCLUSIONS Moderate heterogeneous plaques at the bifurcations and proximal internal carotid arteries bilaterally with Doppler features suggesting 50 to 69% stenosis. Intimal thickening in the common carotid arteries bilaterally Compared to the study from 08/27/2018, there is slight worsening of stenosis bilaterally Dr Monica Stevens MD [facility] (Electronically Signed) Final Date: 29 April 2022 17:09 S
== END 2022-04-29 13:10 | disposition home or self-care (01) ==
LOC: RAD 13:11
PROVIDERS: PCP Internal Medicine; Visit Provider Internal Medicine Cardiovascular Disease
DX: I77.9 Disorder of arteries and arterioles, unspecified (principal); I65.23 Occlusion and stenosis of bilateral carotid arteries; R06.00 Dyspnea, unspecified; I25.5 Ischemic cardiomyopathy
CPT/HCPCS: 93306; 93880

== ENCOUNTER 2022-10-04 11:57 | Outpatient (CLI) | payer OTHER, SELFPAY ==
--- NOTE | 2022-10-04 12:15 | USCV_ITS ---
Angelica David Age: 57 Gender: M : 1965 Exam Date: 10/04/2022 12:20 Ordering Phys: Monica Stevens MD ([email or web address]) Technologist: SUREKHA Exam Location: [facility] [place] Indication: EVAL FOR CAROTID STENOSIS Risk Factors: Previous Vascular Surgery: Right Brachial BP: / Left Brachial BP: / Right Left Velocity (cm/s) Spectral Plaque Velocity (cm/s) Spectral Plaque Syst/Diast Broadening Syst/Diast Broadening 92.30/ 12.00 Prox CCA 98.20 / 8.80 87.10/ 15.30 Mid CCA 109.10/ 22.30 67.80/ 15.60 Distal CCA 111.70/ 19.70 138.10/42.00 Prox ICA 119.60/ 29.50 134.10/47.40 Mid ICA 80.10 / 16.20 100.00/22.10 Distal ICA 69.00 / 20.90 101.90 ECA 105.70 1.50 ICA/CCA 1.07 Antegrade Vertebral Antegrade 37.30/ 12.40 cm/s 36.80/ 10.70 cm/s Tri Subclavian Tri 97.30 139.3 0 FINDINGS Moderate heterogenous plaques at the right bifurcation and proximal internal carotid artery Mild to moderate plaques at the left bifurcation and proximal internal carotid artery Intimal thickening in the common carotid arteries bilaterally Antegrade flow in the vertebral arteries bilaterally Normal Doppler flow velocities in the external carotid and subclavian arteries bilaterally CONCLUSIONS Moderate heterogenous plaques at the right bifurcation and proximal internal carotid artery with a Doppler features suggesting 50 to 69% stenosis Mild to moderate plaques at the left bifurcation and proximal internal carotid artery with Doppler features suggesting less than 50% stenosis(because of the plaque shadowing, degree of stenosis could be underestimated) No significant stenosis in the proximal external carotid or subclavian arteries, based on the above findings Compared to the study from 04/29/2022 the stenosis on the left side appears to be less severe Dr Monica Stevens MD [facility] (Electronically Signed) Final Date: 05 October 2022 08:47 S
== END 2022-10-04 11:58 | disposition home or self-care (01) ==
PROVIDERS: PCP Internal Medicine; Visit Provider Internal Medicine Cardiovascular Disease
DX: I65.23 Occlusion and stenosis of bilateral carotid arteries (principal); I77.9 Disorder of arteries and arterioles, unspecified
CPT/HCPCS: 93880

== ENCOUNTER 2023-11-08 05:46 | Outpatient (CLI) | payer OTHER, SELFPAY ==
--- NOTE | 2023-11-08 06:15 | USCV_ITS ---
Angelica David Age: 58 Gender: M : 1965 Exam Date: 11/08/2023 06:15 Ordering Phys: Monica Stevens MD ([email or web address]) Technologist: Uvaldo Mccord Exam Location: [facility] [place] Indication: cca stenosis Risk Factors: Previous Vascular Surgery: Right Brachial BP: / Left Brachial BP: / Right Left Velocity (cm/s) Spectral Plaque Velocity (cm/s) Spectral Plaque Syst/Diast Broadening Syst/Diast Broadening 59.50/ 14.30 Prox CCA 81.60 / 14.80 65.10/ 13.20 Mid CCA 71.50 / 16.30 63.90/ 17.60 Hetro Distal CCA 90.90 / 14.80 Hetro 189.00/42.20 Hetro Prox ICA 130.10/ 31.60 Hetro 172.90/46.20 Hetro Mid ICA 125.55/ 27.60 Hetro 152.80/36.20 Distal ICA 114.37/ 27.60 170.90 ECA 123.60 2.91 ICA/CCA 1.43 Antegrade Vertebral Antegrade 41.90/ 10.90 cm/s 57.80/ 11.80 cm/s Tri Subclavian Tri 63.70 127.5 0 FINDINGS Moderate heterogenous plaques at the bifurcations and internal carotid arteries bilaterally Intimal thickening in the common carotid arteries bilaterally. Antegrade flow in the vertebral arteries bilaterally. Slightly elevated Doppler flow velocity in the right external carotid artery CONCLUSIONS Moderate heterogenous plaques at the bifurcations and internal carotid arteries bilaterally with velocity elevation and the flow turbulence, suggesting 50 to 69% stenosis bilaterally. The plaque burden appears to be more on the right side No significant stenosis in the subclavian, vertebral and external carotid arteries, based on the above measurements Dr Monica Stevens MD [facility] (Electronically Signed) Final Date: 20 November 2023 09:22 S
== END 2023-11-08 05:47 | disposition home or self-care (01) ==
LOC: RAD 05:49
PROVIDERS: PCP Internal Medicine; Visit Provider Internal Medicine Cardiovascular Disease
DX: I65.21 Occlusion and stenosis of right carotid artery (principal)
CPT/HCPCS: 93880

== ENCOUNTER 2024-08-28 08:44 | Outpatient (CLI) | payer OTHER, SELFPAY ==
[2024-08-28 09:19] LABS: Basophils % 0.7 %; Eosinophils # 0.2 10^3/uL (0.0-0.8); Eosinophils % 3.1 %; Lymphocytes # 2.2 10^3/uL (0.8-4.8); Lymphocytes % 38.3 %; Mean Corpuscular HGB Conc 32.4 g/dL (30-55); Mean Corpuscular Hemoglobin 27.9 pg (27-33); Mean Corpuscular Volume 86.2 fl (82-101); Mean Platelet Volume 9.5 fL (7.4-10.4); Monocytes # 0.4 10^3/uL (0.2-0.9); Monocytes % 7.4 %; Neutrophils # 2.93 10^3/uL (1.8-7.7); Neutrophils % 50.3 %; Nucleated Red Blood Cells % 0 %; Platelet Count 165 10^3/cmm (157-399); Red Blood Count 3.83 10^6/uL (3.85-5.65); Red Cell Distribution Width 12.2 % (12.1-15.1); White Blood Count 5.82 10^3/uL (3.29-11.43)
[2024-08-28 09:46] LABS: Creatinine Urine, Random 84 mg/dL (39-259)
[2024-08-28 09:46] LABS: Calcium 8.4 mg/dL (8.5-10.5)
[2024-08-28 09:47] LABS: Albumin Level 3.7 g/dL (3.5-5.2); Blood Urea Nitrogen 37 mg/dL (8-23); Calcium 8.3 mg/dL (8.5-10.5); Carbon Dioxide 23 mmol/L (22-29); Chloride 103 mmol/L (98-107); Glomerular Filtration Rate 17.3 mL/min (90-130); Glucose 124 mg/dL (65-115); Phosphorus 3.6 mg/dL (2.5-4.5); Sodium 136 mmol/L (136-145)
[2024-08-28 09:53] LABS: Parathyroid Hormone 150.4 pg/mL (15-65)
[2024-08-28 09:57] LABS: Microalbum Creatinine Ratio Ur 655 mg/dL (0-20); Microalbumin Random Urine 55 ug/dL (0-20)
[2024-08-28 10:03] LABS: 25 Hydroxy Vitamin D 37 ng/mL (30-100)
== END 2024-08-28 08:45 | disposition home or self-care (01) ==
LOC: LAB 08:47
PROVIDERS: PCP Family Medicine; Visit Provider Registered Nurse
DX: N18.4 Chronic kidney disease, stage 4 (severe) (principal); D63.1 Anemia in chronic kidney disease; E87.5 Hyperkalemia
CPT/HCPCS: 36415; 80069; 82044; 82306; 82310; 83970; 85025

== ENCOUNTER → 2024-10-04 09:50 | Outpatient (BNVA) | payer BC, SELFPAY | PROVIDERS: PCP Family Medicine; Visit Provider Family Medicine | DX: E78.5 Hyperlipidemia, unspecified (principal); E11.9 Type 2 diabetes mellitus without complications | CPT/HCPCS: 80053; 80061; 83036; 85025 ==

== ENCOUNTER 2024-12-25 15:01 | Outpatient (CLI) | payer OTHER, SELFPAY ==
[2024-12-25 16:02] LABS: Creatinine Urine, Random 102 mg/dL (39-259)
[2024-12-25 16:16] LABS: Calcium 8.5 mg/dL (8.5-10.5); Parathyroid Hormone 89.8 pg/mL (15-65)
[2024-12-25 16:18] LABS: 25 Hydroxy Vitamin D 64 ng/mL (30-100); Albumin Level 3.7 g/dL (3.5-5.2); Anion Gap 16.5 (5-19); Blood Urea Nitrogen 46 mg/dL (8-23); Calcium 8.4 mg/dL (8.5-10.5); Carbon Dioxide 20 mmol/L (22-29); Chloride 106 mmol/L (98-107); Glomerular Filtration Rate 18.5 mL/min (90-130); Glucose 245 mg/dL (65-115); Phosphorus 3.8 mg/dL (2.5-4.5); Potassium 4.5 mmol/L (3.5-5.1); Sodium 138 mmol/L (136-145)
[2024-12-25 16:21] LABS: Microalbum Creatinine Ratio Ur 1363 mg/dL (0-20); Microalbumin Random Urine 139 ug/dL (0-20)
== END 2024-12-25 15:02 | disposition home or self-care (01) ==
LOC: LAB 15:03
PROVIDERS: PCP Family Medicine; Visit Provider Registered Nurse
DX: N18.4 Chronic kidney disease, stage 4 (severe) (principal); E55.9 Vitamin D deficiency, unspecified
CPT/HCPCS: 36415; 80069; 82044; 82306; 82310; 83970

== ENCOUNTER 2024-12-27 09:13 | Outpatient (CLI) | payer OTHER, SELFPAY ==
--- NOTE | 2024-12-27 09:30 | USCV_ITS ---
Angelica David Age: 59 Gender: M : 1965 Exam Date: 12/27/2024 09:35 Ordering Phys: Monica Stevens MD ([email or web address]) Technologist: ESVIN Exam Location: [facility] [place] Indication: Stenosis Risk Factors: Previous Vascular Surgery: Right Brachial BP: / Left Brachial BP: / Right Left Velocity (cm/s) Spectral Plaque Velocity (cm/s) Spectral Plaque Syst/Diast Broadening Syst/Diast Broadening 67.10/ 12.10 Prox CCA 76.20 / 13.90 84.20/ 19.40 Mid CCA 93.60 / 12.40 71.10/ 15.40 Distal CCA 91.80 / 16.00 129.80/36.20 Prox ICA 89.40 / 22.20 128.20/41.40 Mid ICA 55.00 / 16.50 101.90/37.10 Distal ICA 53.40 / 15.90 98.00 ECA 106.30 1.80 ICA/CCA 1.00 Antegrade Vertebral Antegrade 38.90/ 12.20 cm/s 53.10/ 13.60 cm/s Tri Subclavian Tri 80.90 118.1 0 CONCLUSIONS Right ICA stenosis 50-69% at the lower end of the range. Mild atheromatous plaque right carotid bulb/ICA. Left ICA stenosis <50%. Mild atheromatous plaque left carotid bulb/ICA. Normal antegrade Doppler flow noted in the right vertebral artery. Normal antegrade Doppler flow noted in the left vertebral artery. Benedict Cast MD (Electronically Signed) Final Date: 27 December 2024 15:00 S
== END 2024-12-27 09:14 | disposition home or self-care (01) ==
LOC: RAD 09:14
PROVIDERS: PCP Family Medicine; Visit Provider Internal Medicine Cardiovascular Disease
DX: I65.23 Occlusion and stenosis of bilateral carotid arteries (principal)
CPT/HCPCS: 93880

== ENCOUNTER 2025-01-06 11:09 | Outpatient (CLI) | payer OTHER, SELFPAY ==
[2025-01-06 15:02] LABS: Creatinine Urine, Random 168 mg/dL (39-259)
[2025-01-06 15:17] LABS: Microalbum Creatinine Ratio Ur 1113 mg/dL (0-20); Microalbumin Random Urine 187 ug/dL (0-20)
== END 2025-01-06 11:10 | disposition home or self-care (01) ==
PROVIDERS: PCP Family Medicine; Visit Provider Registered Nurse
DX: N18.4 Chronic kidney disease, stage 4 (severe) (principal)
CPT/HCPCS: 82044

== ENCOUNTER 2025-02-13 10:45 | Outpatient (CLI) | payer OTHER, SELFPAY ==
[2025-02-13 12:02] LABS: Blood Urea Nitrogen 36 mg/dL (8-23); Calcium 8.5 mg/dL (8.5-10.5); Carbon Dioxide 21 mmol/L (22-29); Chloride 108 mmol/L (98-107); Glomerular Filtration Rate 16.3 mL/min (90-130); Glucose 80 mg/dL (65-115); Osmolality Calculated 297 mOsm/kg (285-295); Sodium 140 mmol/L (136-145)
[2025-02-13 12:06] LABS: Anion Gap 15.1 (5-19); Potassium 4.1 mmol/L (3.5-5.1)
== END 2025-02-13 10:46 | disposition home or self-care (01) ==
PROVIDERS: PCP Family Medicine; Visit Provider Registered Nurse
DX: N18.4 Chronic kidney disease, stage 4 (severe) (principal)
CPT/HCPCS: 36415; 80048

== ENCOUNTER 2025-04-01 09:35 | Outpatient (CLI) | payer OTHER, SELFPAY ==
[2025-04-01 10:16] LABS: Hematocrit 31.9 % (37-53); Hemoglobin 10.20 g/dL (11.27-16.99); Mean Corpuscular HGB Conc 32.0 g/dL (30-55); Mean Corpuscular Hemoglobin 28.5 pg (27-33); Mean Corpuscular Volume 89.1 fl (82-101); Nucleated Red Blood Cells % 0 %; Platelet Count 139 10^3/cmm (157-399); Red Blood Count 3.58 10^6/uL (3.85-5.65); White Blood Count 5.46 10^3/uL (3.29-11.43)
[2025-04-01 10:39] LABS: Creatinine Urine, Random 122 mg/dL (39-259)
[2025-04-01 10:51] LABS: Microalbum Creatinine Ratio Ur 885 mg/dL (0-20)
[2025-04-01 10:55] LABS: Albumin Level 3.7 g/dL (3.5-5.2); Anion Gap 16.4 (5-19); Blood Urea Nitrogen 48 mg/dL (8-23); Calcium 8.6 mg/dL (8.5-10.5); Carbon Dioxide 19 mmol/L (22-29); Chloride 107 mmol/L (98-107); Glucose 131 mg/dL (65-115); Potassium 4.4 mmol/L (3.5-5.1); Sodium 138 mmol/L (136-145)
== END 2025-04-01 09:36 | disposition home or self-care (01) ==
LOC: LAB 09:38
PROVIDERS: PCP Family Medicine; Visit Provider Registered Nurse
DX: N18.4 Chronic kidney disease, stage 4 (severe) (principal); E55.9 Vitamin D deficiency, unspecified
CPT/HCPCS: 36415; 80069; 82044; 82306; 85025

== ENCOUNTER 2025-05-20 14:53 | Outpatient (CLI) | payer OTHER, SELFPAY ==
[2025-05-20 15:24] LABS: Hematocrit 30.1 % (37-53); Hemoglobin 9.60 g/dL (11.27-16.99); Mean Corpuscular HGB Conc 31.9 g/dL (30-55); Mean Corpuscular Hemoglobin 27.4 pg (27-33); Mean Corpuscular Volume 86.0 fl (82-101); Nucleated Red Blood Cells % 0 %; Platelet Count 185 10^3/cmm (157-399); Red Blood Count 3.50 10^6/uL (3.85-5.65); White Blood Count 5.06 10^3/uL (3.29-11.43)
[2025-05-20 15:53] LABS: Albumin Level 3.6 g/dL (3.5-5.2); Anion Gap 15.8 (5-19); Blood Urea Nitrogen 38 mg/dL (8-23); Calcium 8.3 mg/dL (8.5-10.5); Carbon Dioxide 22 mmol/L (22-29); Chloride 108 mmol/L (98-107); Ferritin 241 ng/mL (30-400); Glucose 153 mg/dL (65-115); Iron 54 ug/dL (59-158); Potassium 4.8 mmol/L (3.5-5.1); Sodium 141 mmol/L (136-145); Total Iron Binding Capacity 243 mcg/dl; Unsaturated Iron Binding 189 ug/dL (112-347)
== END 2025-05-20 14:54 | disposition home or self-care (01) ==
PROVIDERS: PCP Internal Medicine; Visit Provider Internal Medicine Nephrology
DX: N18.5 Chronic kidney disease, stage 5 (principal); D63.1 Anemia in chronic kidney disease
CPT/HCPCS: 36415; 80069; 82728; 83540; 83550; 85025

== ENCOUNTER 2025-06-20 09:45 | Outpatient (CLI) | payer OTHER, SELFPAY ==
--- NOTE | 2025-06-20 10:00 | USCV_ITS ---
Angelica David Age: 59 Gender: M : 1965 Exam Date: 06/20/2025 10:25 Ordering Phys: Drea Gonzales MD Technologist: SHEILA Exam Location: [facility] Indication: stenosis Risk Factors: Previous Vascular Surgery: Right Brachial BP: / Left Brachial BP: / Right Left Velocity (cm/s) Spectral Plaque Velocity (cm/s) Spectral Plaque Syst/Diast Broadening Syst/Diast Broadening 75.00/ 11.50 Prox CCA 90.50 / 10.50 84.10/ 19.30 Mid CCA 101.30/ 12.50 77.20/ 17.60 Distal CCA 68.40 / 10.90 113.20/32.60 Prox ICA 75.80 / 16.10 132.10/37.40 Mid ICA 66.30 / 24.00 71.60/ 17.10 Distal ICA 46.80 / 15.90 83.20 ECA 138.20 1.50 ICA/CCA 1.10 Antegrade Vertebral Antegrade 27.20/ 8.10 cm/s 55.60/ 16.00 cm/s Tri Subclavian Tri 75.90 133.4 0 FINDINGS Comparison:. 12/27/24 Mild elevation of right ICA velocity. Mild plaque in the bifurcations. Antegrade vertebral arteries. CONCLUSIONS No interval change in stenosis since prior exam. Right ICA stenosis 50-69%. Minimal elevation of velocity. Left ICA stenosis < 50%. Dr. Odette Nobles DO (Electronically Signed) Final Date: 20 June 2025 12:21 S
== END 2025-06-20 09:46 | disposition home or self-care (01) ==
LOC: RAD 09:46
PROVIDERS: PCP Family Medicine; Visit Provider Specialist
DX: I65.23 Occlusion and stenosis of bilateral carotid arteries (principal); I25.10 Atherosclerotic heart disease of native coronary artery without angina pectoris; I65.29 Occlusion and stenosis of unspecified carotid artery; I65.09 Occlusion and stenosis of unspecified vertebral artery
CPT/HCPCS: 93880

== ENCOUNTER 2025-07-01 12:20 | Oncology outpatient (recurring) (ONCR) | payer OTHER, SELFPAY ==
[2025-06-24] MEDS: iron sucrose 200 MG in sodium chloride 0.9% (100 ml) 100 ML IV (13:19)
[2025-06-24 14:21] VITALS: BP 144/50; PULSE 97; RESP 18; TEMP 36.4; O2SAT 97
[2025-07-01] MEDS: iron sucrose 200 MG in sodium chloride 0.9% (100 ml) 100 ML IV (13:34)
[2025-07-01 13:37] VITALS: BP 145/75; PULSE 61; RESP 17; TEMP 36.9; O2SAT 98
[2025-07-01 14:19] VITALS: BP 145/75; PULSE 61; RESP 17; TEMP 36.9; O2SAT 98
== END 2025-07-01 23:59 | disposition home or self-care (01) ==
PROVIDERS: PCP Family Medicine; Visit Provider Internal Medicine Nephrology
DX: N18.4 Chronic kidney disease, stage 4 (severe) (principal); Z79.899 Other long term (current) drug therapy
CPT/HCPCS: 96365; J1756; J7050

== ENCOUNTER 2025-07-02 10:03 | Outpatient (CLI) | payer OTHER, SELFPAY ==
[2025-07-02 10:38] LABS: Hematocrit 29.9 % (37-53); Hemoglobin 9.90 g/dL (11.27-16.99); Mean Corpuscular HGB Conc 33.1 g/dL (30-55); Mean Corpuscular Hemoglobin 28.5 pg (27-33); Mean Corpuscular Volume 86.2 fl (82-101); Nucleated Red Blood Cells % 0 %; Platelet Count 128 10^3/cmm (157-399); Red Blood Count 3.47 10^6/uL (3.85-5.65); White Blood Count 4.46 10^3/uL (3.29-11.43)
[2025-07-02 10:54] LABS: Estmated Average Glucose 114; Hemoglobin A1C 5.6 % (4.0-6.0)
[2025-07-02 10:56] LABS: Albumin Level 3.9 g/dL (3.5-5.2); Anion Gap 14.9 (5-19); Blood Urea Nitrogen 38 mg/dL (8-23); Calcium 8.5 mg/dL (8.5-10.5); Carbon Dioxide 23 mmol/L (22-29); Chloride 108 mmol/L (98-107); Glucose 72 mg/dL (65-115); Potassium 3.9 mmol/L (3.5-5.1); Sodium 142 mmol/L (136-145)
[2025-07-02 11:17] LABS: Calcium 8.4 mg/dL (8.5-10.5)
== END 2025-07-02 10:04 | disposition home or self-care (01) ==
LOC: LAB 10:05
PROVIDERS: PCP Family Medicine; Visit Provider Internal Medicine Nephrology
DX: E11.9 Type 2 diabetes mellitus without complications (principal)
CPT/HCPCS: 36415; 80069; 82306; 82310; 83036; 83970; 85025

== ENCOUNTER → 2025-07-10 15:48 | Outpatient (BNVA) | payer OTHER, SELFPAY | PROVIDERS: PCP Family Medicine; Visit Provider Registered Nurse Neonatal Intensive Care | DX: S61.012A Laceration without foreign body of left thumb without damage to nail, initial encounter (principal); S61.411A Laceration without foreign body of right hand, initial encounter; W31.2XXA Contact with powered woodworking and forming machines, initial encounter; M19.041 Primary osteoarthritis, right hand; M79.89 Other specified soft tissue disorders; I87.8 Other specified disorders of veins | CPT/HCPCS: 73130 ==

== ENCOUNTER 2025-07-22 12:30 | Oncology outpatient (recurring) (ONCR) | payer OTHER, SELFPAY ==
[2025-07-08] MEDS: iron sucrose 200 MG in sodium chloride 0.9% (100 ml) 100 ML IV (13:11)
[2025-07-08 13:48] VITALS: BP 132/74; PULSE 98; RESP 16; TEMP 36.7; O2SAT 98
[2025-07-15] MEDS: iron sucrose 200 MG in sodium chloride 0.9% (100 ml) 100 ML IV (13:59)
[2025-07-17 12:59] VITALS: BP 127/81; PULSE 75; RESP 18; TEMP 36.6; O2SAT 99
[2025-07-17] MEDS: iron sucrose 200 MG in sodium chloride 0.9% (100 ml) 100 ML IV (13:26)
[2025-07-17 14:07] VITALS: BP 146/72; PULSE 62; RESP 17; TEMP 36.3; O2SAT 98
[2025-07-22] MEDS: iron sucrose 200 MG in sodium chloride 0.9% (100 ml) 100 ML IV (12:54)
[2025-07-22 13:05] VITALS: BP 134/68; PULSE 54; RESP 17; TEMP 36.6; O2SAT 97
[2025-07-22 13:30] VITALS: BP 122/56; PULSE 55; RESP 17; TEMP 36.6; O2SAT 92
== END 2025-08-01 23:59 | disposition home or self-care (01) ==
PROVIDERS: PCP Family Medicine; Visit Provider Internal Medicine Nephrology
DX: N18.4 Chronic kidney disease, stage 4 (severe) (principal); Z79.899 Other long term (current) drug therapy
CPT/HCPCS: 96365; J1756

== ENCOUNTER 2025-08-06 15:20 | Outpatient (CLI) | payer OTHER, SELFPAY ==
[2025-08-06 16:45] LABS: Albumin Level 3.8 g/dL (3.5-5.2); Anion Gap 16.5 (5-19); Blood Urea Nitrogen 45 mg/dL (8-23); Calcium 8.5 mg/dL (8.5-10.5); Carbon Dioxide 19 mmol/L (22-29); Chloride 111 mmol/L (98-107); Glucose 144 mg/dL (65-115); Potassium 4.5 mmol/L (3.5-5.1); Sodium 142 mmol/L (136-145)
== END 2025-08-06 15:21 | disposition home or self-care (01) ==
PROVIDERS: PCP Family Medicine; Visit Provider Registered Nurse
DX: Z01.89 Encounter for other specified special examinations (principal)
CPT/HCPCS: 36415; 80069